=== PATIENT | male | born 1955 | race African-American/Black ===

== ENCOUNTER 2016-09-14 01:57 | Emergency (ER) | payer OTHER ==
[~2016-09-14] VITALS: Ht 188 cm; Wt 131.1 kg
[2016-09-14 02:15] VITALS: BP 146/78
[2016-09-14 02:58] LABS: Basophils # (auto) 0 uL; CONDITION Y; DEFINITIVE SEE PRINTOUT
[2016-09-14 03:07] LABS: Albumin 3.5 g/dL (3.4-5.0); BUN/Creatinine Ratio 13.7; Calcium 8.2 mg/dL (8.5-10.1); Potassium 3.3 mmol/L (3.5-5.1)
[2016-09-14 03:10] LABS: Bilirubin, Total 0.4 mg/dL (0.2-1.0); Total Protein 7.2 g/dL (6.4-8.2)
[2016-09-14 03:17] LABS: Amylase 64 U/L (25-115)
[2016-09-14 03:33] LABS: Basophils % (auto) 0.2 % (0.0-2.0); Eosinophils # (auto) 0.1 uL; Eosinophils % (auto) 0.5 % (0.0-7.0); Hemoglobin 13.4 g/dL (13.5-17.5); Lymphocytes # (auto) 3.9 uL; Lymphocytes % (auto) 38.9 % (10.0-50.0); Mean Corpuscular Hemoglobin 24.6 pg (28.0-32.0); Mean Corpuscular Volume 79.2 fL (80.0-100.0); Monocytes % (auto) 9.5 % (0.0-12.0); Neutrophils # (auto) 5.1 uL; Neutrophils % (auto) 50.9 % (37.0-80.0)
[2016-09-14 03:34] LABS: Mean Platelet Volume 7.7 fL (7.4-10.4); Platelet Count (auto) 298 10^3/uL (140-450); Red Cell Distribution Width 16.2 % (11.6-16.0)
== END 2016-09-14 06:44 | disposition left against medical advice (07) ==
LOC: ER 01:57
DX: R07.81 Pleurodynia (principal); Z53.21 Procedure and treatment not carried out due to patient leaving prior to being seen by health care provider
CPT/HCPCS: 36415; 71250; 74176; 80053; 80320; 82150; 83690; 84484; 85025; 93005